=== PATIENT | female | born 1935 | race Caucasian/White ===

== ENCOUNTER 2019-07-15 15:09 | Inpatient (IN) ==
[2019-07-15] MEDS ORDERED: *HR* HYDROcodone/Acet 5/325 mg TABLET PO ONE (16:53)
[2019-07-15] MEDS ORDERED: Ipratropium/Albuterol Neb 3 ML IH ONE (17:28)
[2019-07-15] MEDS ORDERED: Azithromycin 500 MG in 0.9 % Sodium Chloride 250 ML IVPB ONE (17:33)
[2019-07-15 17:55] LABS: Basophils % 0.1 %; Eosinophils % 0.2 %; Hematocrit 34.8 % (35.3-44.9); Hemoglobin 10.7 g/dL (11.5-15.4); Immature Granulocytes % 0.9 % (0-4); Lymphocytes # 1.6 K/mcL (0.6-4.6); Lymphocytes % 11.3 %; Mean Corpuscular HGB Conc 30.7 g/dL (31.6-35.5); Mean Corpuscular Hemoglobin 26.6 pg (28.0-33.3); Mean Corpuscular Volume 86.6 fL (83.0-100.0); Mean Platelet Volume 8.9 fL (9.4-12.4); Monocytes # 1.2 K/mcL (0.0-1.3); Monocytes % 8.7 %; Neutrophils # 11.3 K/mcL (1.6-8.9); Nucleated Red Blood Cells 0.3 /100 WBC (0); Platelet Count 621 K/mcL (140-400); Red Blood Count 4.02 M/mcL (3.82-4.97); Red Cell Distribution Width 18.1 % (11.5-14.5); Segmented Neutrophils % 78.8 %; White Blood Count 14.3 K/mcL (4.3-11.1)
[2019-07-15] MEDS ORDERED: MOM Conc 10 ML UD.LIQ PO PRN (18:03)
[2019-07-15] MEDS ORDERED: Ondansetron 4 MG/2 ML VIAL IVP PRN (18:03)
[2019-07-15] MEDS ORDERED: Mag Hydrox/Al Hydrox/Simeth 30 ML UDC PO PRN (18:03)
[2019-07-15] MEDS ORDERED: Naloxone 0.4 MG/ML INJ IVP PRN (18:03)
[2019-07-15] MEDS ORDERED: Acetaminophen 325 MG TABLET PO PRN (18:03)
[2019-07-15 18:21] LABS: BUN/Creatinine Ratio 45 (6-26); Blood Urea Nitrogen 21 mg/dL (8-23); Carbon Dioxide 40 mEq/L (23-29); Chloride 86 mEq/L (98-107); Glucose 110 mg/dL (70-105); Osmolality,Calculated 282 (280-300); Potassium 2.9 mEq/L (3.5-5.1); Sodium 134 mEq/L (136-145); eGFR For African Americans > 60 (> 60); eGFR For Non-African Americans > 60 (> 60)
[2019-07-15] MEDS ORDERED: Azithromycin 500 MG in 0.9 % Sodium Chloride 250 ML IVPB SCH (19:00)
[2019-07-15] MEDS ORDERED: cefTRIAXone 1,000 MG in Water for inj. (sterile) 10 ML IVP SCH (19:00)
[2019-07-15] MEDS ORDERED: *HR* HYDROcodone/Acet 10/325 mg TABLET PO PRN (20:17)
[2019-07-15] MEDS ORDERED: cloNIDine HCl 0.1 MG TABLET PO PRN (20:17)
[2019-07-15] MEDS: Ipratropium/Albuterol Neb 3 ML IH SCH (20:49)
[2019-07-15] MEDS: 0.9 % Sodium Chloride 1,000 ML IVC SCH (21:13)
[2019-07-15] MEDS: clonazePAM 0.5 MG TABLET PO SCH (21:14)
[2019-07-15] MEDS: Folic Acid 1 MG TABLET PO SCH (21:17)
[2019-07-15] MEDS: tiZANidine 4 MG TABLET PO PRN (21:17)
[2019-07-15] MEDS: Lactobacillus 1 EACH CAP.SPRINK PO SCH (21:17)
[2019-07-15] MEDS: Budesonide/Formoterol 80/4.5 1 PUFF INH IH SCH (23:05)
[2019-07-16] MEDS: Ipratropium/Albuterol Neb 3 ML IH SCH ×6 (01:03→21:26)
[2019-07-16] MEDS: *HR* HYDROcodone/Acet 10/325 mg TABLET PO PRN ×2 (03:19→09:39)
[2019-07-16 06:37] LABS: Basophils % 0.1 %; Eosinophils # 0.1 K/mcL (0.0-0.6); Eosinophils % 0.7 %; Hematocrit 29.9 % (35.3-44.9); Hemoglobin 9.1 g/dL (11.5-15.4); Immature Granulocytes % 0.9 % (0-4); Lymphocytes # 1.4 K/mcL (0.6-4.6); Lymphocytes % 11.2 %; Mean Corpuscular HGB Conc 30.4 g/dL (31.6-35.5); Mean Corpuscular Hemoglobin 27.1 pg (28.0-33.3); Mean Platelet Volume 8.6 fL (9.4-12.4); Monocytes # 1.2 K/mcL (0.0-1.3); Monocytes % 9.1 %; Nucleated Red Blood Cells 0.2 /100 WBC (0); Platelet Count 541 K/mcL (140-400); Red Blood Count 3.36 M/mcL (3.82-4.97); Red Cell Distribution Width 18.2 % (11.5-14.5); White Blood Count 12.6 K/mcL (4.3-11.1)
[2019-07-16 06:40] LABS: Neutrophils # 9.8 K/mcL (1.6-8.9)
[2019-07-16 07:00] LABS: BUN/Creatinine Ratio 46 (6-26); Blood Urea Nitrogen 16 mg/dL (8-23); Calcium 7.6 mg/dL (8.6-10.3); Carbon Dioxide 36 mEq/L (23-29); Chloride 93 mEq/L (98-107); Glucose 96 mg/dL (70-105); Osmolality,Calculated 279 (280-300); Potassium 3.8 mEq/L (3.5-5.1); Sodium 134 mEq/L (136-145); eGFR For African Americans > 60 (> 60); eGFR For Non-African Americans > 60 (> 60)
[2019-07-16] MEDS: Budesonide/Formoterol 80/4.5 1 PUFF INH IH SCH ×2 (07:24→21:26)
[2019-07-16] MEDS: 0.9 % Sodium Chloride 1,000 ML IVC SCH (07:42)
[2019-07-16] MEDS: Lactobacillus 1 EACH CAP.SPRINK PO SCH ×2 (08:47→20:44)
[2019-07-16] MEDS: Folic Acid 1 MG TABLET PO SCH ×2 (08:47→20:44)
[2019-07-16] MEDS: tiZANidine 4 MG TABLET PO PRN (09:39)
[2019-07-16 11:50] LABS: Adenovirus Not Detected (Not Detect); Bordetella Pertussis Not Detected (Not Detect); Chlamydophila pneumoniae Not Detected (Not Detect); Coronavirus 229E Not Detected (Not Detect); Coronavirus HKU1 Not Detected (Not Detect); Coronavirus NL63 Not Detected (Not Detect); Coronavirus OC43 Not Detected (Not Detect); Human Metapneumovirus Not Detected (Not Detect); Human Rhinovirus/Enterovirus Not Detected (Not Detect); Influenza A Subtype 2009 H1 Not Detected (Not Detect); Influenza B Not Detected (Not Detect); Mycoplasma pneumoniae Not Detected (Not Detect); Parainfluenza Virus 1 Not Detected (Not Detect); Parainfluenza Virus 2 Not Detected (Not Detect); Parainfluenza Virus 3 Not Detected (Not Detect); Parainfluenza Virus 4 Not Detected (Not Detect); Respiratory Syncytial Virus Not Detected (Not Detect)
[2019-07-16] MEDS ORDERED: 0.9 % Sodium Chloride 1,000 ML IV ONE (14:13)
[2019-07-16 19:21] LABS: Bilirubin,Urine Negative (Negative); Blood,Urine Moderate (Negative); Clarity,Urine Cloudy (Clear); Color,Urine Yellow (Yellow); Glucose,Urine (UA) Normal (Normal); Ketones,Urine Negative (Negative); Leukocyte Esterase,Urine Moderate (Negative); Nitrite,Urine Negative (Negative); PH,Urine 7.5 pH Units (5.0-8.0); Protein,Urine 100 mg/dL (Neg-Trace); Urobilinogen,Urine Normal (Normal)
[2019-07-16 19:36] LABS: Bacteria,Urine Moderate per hpf (None-Few); WBC,Urine TNTC per hpf (0-3)
[2019-07-16 19:37] LABS: Yeast,Urine Moderate per hpf (None Seen)
[2019-07-16] MEDS: clonazePAM 0.5 MG TABLET PO SCH (20:43)
[2019-07-17] MEDS: Ipratropium/Albuterol Neb 3 ML IH SCH ×6 (01:00→21:06)
[2019-07-17] MEDS: Budesonide/Formoterol 80/4.5 1 PUFF INH IH SCH ×2 (07:52→21:06)
[2019-07-17] MEDS ORDERED: tiZANidine 4 MG TABLET PO PRN (09:16)
[2019-07-17] MEDS: *HR* OxyCODONE/APAP 5/325 TABLET PO PRN ×3 (09:34→23:59)
[2019-07-17] MEDS: Lactobacillus 1 EACH CAP.SPRINK PO SCH ×2 (09:34→20:41)
[2019-07-17] MEDS: Folic Acid 1 MG TABLET PO SCH ×2 (09:34→20:41)
[2019-07-17 09:57] LABS: Hematocrit 30.7 % (35.3-44.9); Hemoglobin 9.2 g/dL (11.5-15.4); Mean Corpuscular Hemoglobin 26.9 pg (28.0-33.3); Mean Corpuscular Volume 89.8 fL (83.0-100.0); Mean Platelet Volume 8.6 fL (9.4-12.4); Platelet Count 512 K/mcL (140-400); Red Blood Count 3.42 M/mcL (3.82-4.97); Red Cell Distribution Width 18.3 % (11.5-14.5); White Blood Count 10.6 K/mcL (4.3-11.1)
[2019-07-17 10:13] LABS: BUN/Creatinine Ratio 24 (6-26); Blood Urea Nitrogen 8 mg/dL (8-23); Calcium 8.2 mg/dL (8.6-10.3); Carbon Dioxide 32 mEq/L (23-29); Chloride 96 mEq/L (98-107); Glucose 94 mg/dL (70-105); Osmolality,Calculated 272 (280-300); Potassium 4.1 mEq/L (3.5-5.1); Sodium 132 mEq/L (136-145); eGFR For African Americans > 60 (> 60); eGFR For Non-African Americans > 60 (> 60)
[2019-07-17] MEDS ORDERED: Isovue-370 500 ML BOTTLE IVP ONE (12:27)
[2019-07-17] MEDS ORDERED: INVANZ 1 GM IV SCH (14:45)
[2019-07-17] MEDS: Ertapenem 1,000 MG in 0.9 % Sodium Chloride Mini Bag 100 ML IVPB SCH (15:25)
[2019-07-17] MEDS: clonazePAM 0.5 MG TABLET PO SCH (20:41)
[2019-07-18] MEDS: Ipratropium/Albuterol Neb 3 ML IH SCH ×6 (00:48→20:20)
[2019-07-18 06:34] LABS: Hematocrit 28.9 % (35.3-44.9); Hemoglobin 8.5 g/dL (11.5-15.4); Mean Corpuscular HGB Conc 29.4 g/dL (31.6-35.5); Mean Corpuscular Hemoglobin 26.6 pg (28.0-33.3); Mean Corpuscular Volume 90.3 fL (83.0-100.0); Platelet Count 517 K/mcL (140-400); Red Cell Distribution Width 18.5 % (11.5-14.5); White Blood Count 10.6 K/mcL (4.3-11.1)
[2019-07-18 07:01] LABS: BUN/Creatinine Ratio 15 (6-26); Blood Urea Nitrogen 5 mg/dL (8-23); Calcium 8.5 mg/dL (8.6-10.3); Carbon Dioxide 30 mEq/L (23-29); Chloride 96 mEq/L (98-107); Glucose 87 mg/dL (70-105); Osmolality,Calculated 273 (280-300); Potassium 3.8 mEq/L (3.5-5.1); Sodium 133 mEq/L (136-145); eGFR For African Americans > 60 (> 60); eGFR For Non-African Americans > 60 (> 60)
[2019-07-18] MEDS: *HR* OxyCODONE/APAP 5/325 TABLET PO PRN ×2 (09:10→16:47)
[2019-07-18] MEDS: Lactobacillus 1 EACH CAP.SPRINK PO SCH ×2 (09:11→21:30)
[2019-07-18] MEDS: Folic Acid 1 MG TABLET PO SCH ×2 (09:11→21:30)
[2019-07-18] MEDS: Ertapenem 1,000 MG in 0.9 % Sodium Chloride Mini Bag 100 ML IVPB SCH (09:11)
[2019-07-18 10:13] LABS: C-Reactive Protein 60 mg/L (Less than 10)
[2019-07-18] MEDS: Budesonide/Formoterol 80/4.5 1 PUFF INH IH SCH ×2 (10:38→20:21)
[2019-07-18] MEDS: clonazePAM 0.5 MG TABLET PO SCH (21:30)
[2019-07-19] MEDS: Ipratropium/Albuterol Neb 3 ML IH SCH ×4 (00:33→12:37)
[2019-07-19] MEDS: *HR* OxyCODONE/APAP 5/325 TABLET PO PRN ×3 (03:43→15:27)
[2019-07-19 06:12] LABS: Hematocrit 29.9 % (35.3-44.9); Hemoglobin 9.1 g/dL (11.5-15.4); Mean Corpuscular HGB Conc 30.4 g/dL (31.6-35.5); Mean Corpuscular Volume 88.7 fL (83.0-100.0); Mean Platelet Volume 8.9 fL (9.4-12.4); Platelet Count 519 K/mcL (140-400); Red Blood Count 3.37 M/mcL (3.82-4.97); Red Cell Distribution Width 18.6 % (11.5-14.5); White Blood Count 10.9 K/mcL (4.3-11.1)
[2019-07-19 07:53] VITALS: BP 120/72
[2019-07-19 08:33] LABS: BUN/Creatinine Ratio 14 (6-26); Blood Urea Nitrogen 6 mg/dL (8-23); Calcium 8.7 mg/dL (8.6-10.3); Carbon Dioxide 29 mEq/L (23-29); Chloride 96 mEq/L (98-107); Glucose 97 mg/dL (70-105); Osmolality,Calculated 272 (280-300); Potassium 4.3 mEq/L (3.5-5.1); Sodium 132 mEq/L (136-145); eGFR For African Americans > 60 (> 60); eGFR For Non-African Americans > 60 (> 60)
[2019-07-19] MEDS: Folic Acid 1 MG TABLET PO SCH (09:41)
[2019-07-19] MEDS: Ertapenem 1,000 MG in 0.9 % Sodium Chloride Mini Bag 100 ML IVPB SCH (09:42)
[2019-07-19] MEDS: Lactobacillus 1 EACH CAP.SPRINK PO SCH (09:42)
[2019-07-19 09:57] LABS: Mycoplasma pneumoniae IgG 0.07 U/L (<=0.09)
[2019-07-19] MEDS: Budesonide/Formoterol 80/4.5 1 PUFF INH IH SCH (11:17)
== END 2019-07-19 15:55 | disposition other institution (70) | DRG 194 ==
LOC: EMEROOPIK 15:09 → INPPIK 15:09
PROVIDERS: ADMIT Family Medicine; ATTEND Family Medicine